=== PATIENT | male | born 1980 | race Caucasian/White ===

== ENCOUNTER 2017-05-25 17:29 | Emergency (ER) | payer OTHER ==
[~2017-05-25] VITALS: Ht 175.3 cm; Wt 105.2 kg
[~2017-05-25 17:29] MED LIST: MOBIC15 M1 PO; PEPCID20 M1 PO; VICODIN 5-3001 EACH PO; ZOFRAN ODT4 M1 PO
[2017-05-25 17:33] VITALS: BP 151/89
--- NOTE | 2017-05-25 19:03 | ED EAR COMPLAINT ---
History of Present Illness General Chief Complaint: Ear Complaints Stated Complaint: LEFT EAR PROBLEMS Vital Signs & Intake/Output Vital Signs & Intake/Output Vital Signs Date Time Temp Pulse Resp B/P B/P Pulse O2 O2 Flow FiO2 Mean Ox Delivery Rate 05/25 1733 97.9 94 18 151/89 98 Room Air Allergies Coded Allergies: No Known Allergies (08/16/15) Reconcile Medications Famotidine (Pepcid) 20 MG TABLET 1 TAB PO BID GASTRITIS Fluticasone Propionate (Flonase Allergy Relief) 50 MCG/ACTUATION SPRAY.SUSP 2 SPRAY NS ONCE DAILY PRN CONGESTION Hydrocodone/Acetaminophen (Vicodin 5-300 MG Tablet) 1 EACH TABLET 1-2 TAB PO Q6P PRN PAIN Meloxicam (Mobic) 15 MG TABLET 1 TAB PO DAILY PRN PAIN Ondansetron (Zofran Odt) 4 MG TAB.RAPDIS 1 TAB PO Q6P PRN NAUSEA Triage Note: PT STATES THAT HE HAS A HISTORY OF TINITIS AN L EAR AND THAT RINGING HAS BEEN INCREASED. FEELS LIKE SOMETHING IS IN EAR, HAD EARS IRRIGATED AT A WALK IN OVER THE WEEK END. PT WOULD LIKE TO SEE IF HE HAS AN EAR INFECTION. 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
--- NOTE | 2017-05-25 19:11 | ED EAR COMPLAINT ---
History of Present Illness General Chief Complaint: Ear Complaints Stated Complaint: LEFT EAR PROBLEMS Source: patient Exam Limitations: no limitations Vital Signs & Intake/Output Vital Signs & Intake/Output Vital Signs Date Time Temp Pulse Resp B/P B/P Pulse O2 O2 Flow FiO2 Mean Ox Delivery Rate 05/25 1733 97.9 94 18 151/89 98 Room Air Allergies Coded Allergies: No Known Allergies (08/16/15) Reconcile Medications Famotidine (Pepcid) 20 MG TABLET 1 TAB PO BID GASTRITIS Fluticasone Propionate (Flonase Allergy Relief) 50 MCG/ACTUATION SPRAY.SUSP 2 SPRAY NS ONCE DAILY PRN CONGESTION Hydrocodone/Acetaminophen (Vicodin 5-300 MG Tablet) 1 EACH TABLET 1-2 TAB PO Q6P PRN PAIN Meloxicam (Mobic) 15 MG TABLET 1 TAB PO DAILY PRN PAIN Ondansetron (Zofran Odt) 4 MG TAB.RAPDIS 1 TAB PO Q6P PRN NAUSEA Triage Note: PT STATES THAT HE HAS A HISTORY OF TINITIS AN L EAR AND THAT RINGING HAS BEEN INCREASED. FEELS LIKE SOMETHING IS IN EAR, HAD EARS IRRIGATED AT A WALK IN OVER THE WEEK END. PT WOULD LIKE TO SEE IF HE HAS AN EAR INFECTION. HAS APPOINTMENT 06/07 WITH ENT Triage Nurses Notes Reviewed? yes Onset: Gradual Duration: week(s):, constant, continues in ED Timing: recent history Injury Environment: home Severity: moderate, severe Severity Numbers: 8 No Modifying Factors: none HPI: 36-year-old male past medical history of hypertension, hyperlipidemia and tinnitus presents for evaluation of worsening tinnitus in his left ear. Patient states that he has had tinnitus in his left ear for years since she was a kid. He's never had it checked or evaluated before. He states that it's always been mild. He states that over the past several weeks as tinnitus is gotten worse. He has an appointment with ear nose and throat doctor on the but feels like it is making it difficult for him to sleep and he wants to make sure there is no infection. He reports associated increased pressure in the left ear and he feels a fluid in the left ear. No fever. He does report some nasal congestion and rhinorrhea. No ear discharge no decreased hearing no dizziness chest pain or shortness of breath. No headaches. Past History Travel History Traveled to [place] past 21 day No Medical History Any Pertinent Medical History? 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 No Review of Systems Review of Systems Constitutional: Reports: no symptoms. EENTM: Reports: ear pain, hearing changes, nasal congestion. Respiratory: Reports: no symptoms. Cardiovascular: Reports: no symptoms. GI: Reports: no symptoms. Genitourinary: Reports: no symptoms. Musculoskeletal: Reports: no symptoms. Skin: Reports: no symptoms. Neurological/Psychological: Reports: no symptoms. Hematologic/Endocrine: Reports: no symptoms. Immunologic/Allergic: Reports: no symptoms. All Other Systems: Reviewed and Negative Physical Exam Physical Exam General Appearance: well developed/nourished, no apparent distress, alert, awake Head: atraumatic, normal appearance Eyes: Bilateral: normal appearance, PERRL, EOMI. Ears: Left: other (clear fluids effusion ). Bilateral: canal normal, Tympanic normal. Nose: discharge (clear) Mouth/Throat: normal mouth inspection, pharynx normal Neck: normal inspection, supple, full range of motion, no mastoid tenderness no pain with palpation of the tragus no pain with pinna pull Cardiovascular/Respiratory: normal breath sounds, normal peripheral pulses, regular rate/rhythm, no respiratory distress Gastrointestinal: soft nontender Back: normal inspection, normal range of motion, no vertebral tenderness Neurologic/Psych: no motor/sensory deficits, awake, alert, oriented x 3, normal gait, normal mood/affect, cerebellar testing intact Skin: intact, normal color, warm/dry Progress Differential Diagnoses I considered the following diagnoses in my evaluation of the patient: [Mnire's disease, vertigo, medication side effects vestibular mass] , Intracranial mass Plan of Care: Patient seen and evaluated. He's been having tinnitus for years since he was younger. He recently increased in intensity over the past several weeks. He denies any new medications or other triggering event. Some associated rhinorrhea congestion and feelings of fluid in his ear. There is some fluid behind the left eardrum. No other associated symptoms. Has an appointment with ear nose and throat on June 07. He'll be given a prescription for Flonase use until then. Advised him to rest and plenty of fluids and monitor symptoms. Return with fever ear discharge worsening tinnitus, dizziness ear pain or any other concerns. Patient is nontoxic-appearing and agrees the plan. Initial ED EKG: none Departure Departure Disposition: HOME OR SELF CARE Condition: Stable Clinical Impression Primary Impression: Tinnitus of left ear Referrals: Joanie TAMAYO,Amarjit Moore (PCP/Family) Additional Instructions: Use fluticasone spray as directed. Follow up with her ear nose and throat doctor on June 07 as scheduled. YOU should also follow up with YOUr primary care doctor. Monitor symptoms return with any concerns. Departure Forms: Customer Survey General Discharge Information Prescriptions: Current Visit Scripts Fluticasone Propionate (Flonase Allergy Relief) 2 SPRAY NS ONCE DAILY PRN CONGESTION #1 BOT
[2017-05-25] MEDS ORDERED: FLONASE ALLERG9.9 ML NS (19:13)
== END 2017-05-25 19:18 ==
LOC: ERH 17:29
DX: H93.12 Tinnitus, left ear (principal)

== ENCOUNTER 2017-08-07 19:46 | Emergency (ER) | payer OTHER ==
[~2017-08-07] VITALS: Ht 175.3 cm; Wt 104.3 kg
[~2017-08-07 19:46] MED LIST changes: +FLONASE ALLERG9.9 ML NS
[2017-08-07 21:02] LABS: ABSOLUTE BASOPHIL COUNT 0 /CUMM (0.0-0.2); ABSOLUTE EOSINOPHIL COUNT 0 /CUMM (0.0-0.7); ABSOLUTE GRANULOCYTE CT 6.8 /CUMM (1.4-6.5); ABSOLUTE LYMPH COUNT 0.6 /CUMM (1.2-3.4); ABSOLUTE MONOCYTE COUNT 0.6 /CUMM (0.10-0.60); BASOPHIL % 0 % (0.0-2.0); EOSINOPHIL % 0.2 % (0-5); GRANULOCYTE % 85.5 % (42.2-75.2); HEMATOCRIT 48.2 % (42-52); MEAN CORPUSCULAR HGB 29.2 PG (27.0-31.0); MEAN CORPUSCULAR VOLUME 85.9 FL (80.0-94.0); MEAN PLATELET VOLUME 8.9 FL (7.4-10.4); PLATELET COUNT 166 /CUMM (130-400); RBC DISTRIBUTION WIDTH 13.1 % (11.5-14.5); RED BLOOD CELL CT 5.61 /CUMM (4.70-6.10)
--- NOTE | 2017-08-07 22:07 | ED GI/GU/ABDOMINAL COMPLAINT ---
History of Present Illness General Chief Complaint: Nausea, Vomiting, Diarrhea Stated Complaint: SEVERE STOMACH PAIN [id number] +N +D Source: patient, old records Exam Limitations: no limitations Vital Signs & Intake/Output Vital Signs & Intake/Output Vital Signs Date Time Temp Pulse Resp B/P B/P Pulse O2 O2 Flow FiO2 Mean Ox Delivery Rate 08/08 0330 98.4 88 14 136/62 97 Room Air 08/07 2339 98.7 95 18 138/60 97 Room Air 08/07 2236 99.5 91 16 143/72 100 Room Air 08/07 2150 100 Room Air ED Intake and Output 08/08 0000 08/07 1200 Intake Total Output Total Balance Patient 230 lb Weight Allergies Coded Allergies: No Known Allergies (08/16/15) Reconcile Medications Famotidine (Pepcid) 20 MG TABLET 1 TAB PO BID GASTRITIS Fluticasone Propionate (Flonase Allergy Relief) 50 MCG/ACTUATION SPRAY.SUSP 2 SPRAY NS ONCE DAILY PRN CONGESTION Hydrocodone/Acetaminophen (Vicodin 5-300 MG Tablet) 1 EACH TABLET 1-2 TAB PO Q6P PRN PAIN Hyoscyamine Sulfate (Levsin-Sl) 0.125 MG TAB.SUBL 1-2 TAB SL Q4P PRN abdominal pain Loperamide HCl (Imodium A-D) 2 MG TABLET 0 PO SEE ADMIN CRITERIA PRN diarrhea 1 tab after each loose stool up to 7 per day Meloxicam (Mobic) 15 MG TABLET 1 TAB PO DAILY PRN PAIN Metoclopramide HCl (Reglan) 10 MG TABLET 1 TAB PO 4 TIMES/DAY nausea 30 minutes before meals and bedtime Ondansetron (Zofran Odt) 4 MG TAB.RAPDIS 1 TAB PO Q6P PRN NAUSEA Triage Note: PT TO TRIAGE C/O UPPER ABD PAIN SINCE THIS MORNING, PROGRESSIVELY GETTING WORSE. +N/D. PT TOOK IMMODIUM AT 6PM WITHOUT RELIEF. STATES PAIN 11/02. Triage Nurses Notes Reviewed? yes Onset: Morning Duration: hour(s):, constant, continues in ED Timing: recent history Quality/Severity: aching, fullness, severe Location: epigastric Radiation: no radiation Activities at Onset: rest Prior Abdominal Problems: similar symptoms Past Sexual History: Unobtainable at this time Modifying Factors: Worsens With: eating, palpation. Associated Symptoms: abdominal pain, diarrhea, loss of appetite, nausea/vomiting HPI: 12 hours prior to admission patient complains of epigastric fullness gas-like moderate to severe associated with nausea and anorexia frequent loose watery stools. He denies fever chills chest pain cough shortness of breath vomiting headache dysuria rash bleeding. Past History Travel History Traveled to [place] past 21 day No Medical History Any Pertinent Medical History? 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 No Review of Systems Review of Systems Constitutional: Reports: no symptoms. EENTM: Reports: no symptoms. Respiratory: Reports: no symptoms. Cardiovascular: Reports: no symptoms. GI: Reports: see HPI, abdominal pain, bloating, diarrhea, nausea. Genitourinary: Reports: no symptoms. Musculoskeletal: Reports: no symptoms. Skin: Reports: no symptoms. Neurological/Psychological: Reports: no symptoms. Hematologic/Endocrine: Reports: no symptoms. Immunologic/Allergic: Reports: no symptoms. All Other Systems: Reviewed and Negative Physical Exam Physical Exam General Appearance: well developed/nourished, alert, awake, anxious, mild distress, obese Head: atraumatic, normal appearance Eyes: Bilateral: normal appearance, PERRL, EOMI, normal inspection. Ears, Nose, Throat, Mouth: hearing grossly normal, moist mucous membrane Neck: normal inspection, supple, full range of motion, normal alignment Respiratory: normal breath sounds, chest non-tender, no respiratory distress, quiet respiration, lungs clear Cardiovascular: regular rate/rhythm, normal peripheral pulses, norml femoral pulses equa Peripheral Pulses: 4+ carotid (R), 4+ carotid (L) Gastrointestinal: soft, abnormal bowel sounds, distention, tenderness ( epigastric mild) Male Genitals: normal genitalia Back: normal inspection, normal range of motion, no vertebral tenderness Extremities: normal range of motion, no ligament instability Neurologic/Psych: no motor/sensory deficits, awake, alert, oriented x 3, normal gait, normal 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 No Sepsis Present: No Sepsis Focused Exam Completed? No Progress Differential Diagnosis: biliary colic, gastritis, pancreatitis, PUD/GERD Plan of Care: Laboratory Tests 08/07/172055: Anion Gap 15, Estimated GFR > 60, BUN/Creatinine Ratio 20.0, Glucose 100 H, Calcium 9.5, Total Bilirubin 1.4 H, AST 20, ALT 36, Alkaline Phosphatase 56, Total Protein 8.4 H, Albumin 5.2 H, Globulin 3.2, Albumin/Globulin Ratio 1.6, Amylase 45, Lipase 34, CBC w Diff NO MAN DIFF REQ, RBC 5.61, MCV 85.9, MCH 29.2, MCHC 34.0, RDW 13.1, MPV 8.9, Gran % 85.5 H, Lymphocytes % 6.9 L, Monocytes % 7.4, Eosinophils % 0.2, Basophils % 0, Absolute Granulocytes 6.8 H, Absolute Lymphocytes 0.6 L, Absolute Monocytes 0.6, Absolute Eosinophils 0, Absolute Basophils 0 Initial ED EKG: none Departure Departure Time of Disposition: 548 Disposition: HOME OR SELF CARE Condition: Stable Clinical Impression Primary Impression: Gastritis Secondary Impressions: Diarrhea Referrals: Joanie TAMAYO,Amarjit Moore (PCP/Family) Departure Forms: Customer Survey General Discharge Information Prescriptions: Current Visit Scripts Metoclopramide HCl (Reglan) 1 TAB PO 4 TIMES/DAY #30 TAB 30 minutes before meals and bedtime Loperamide HCl (Imodium A-D) 0 PO SEE ADMIN CRITERIA PRN diarrhea #24 TAB 1 tab after each loose stool up to 7 per day Hyoscyamine Sulfate (Levsin-Sl) 1-2 TAB SL Q4P PRN abdominal pain #30 TAB Hyoscyamine Sulfate (Levsin-Sl) 1-2 TAB SL Q4P PRN abdominal pain #30 TAB
[2017-08-08 03:30] VITALS: BP 136/62
[2017-08-08] MEDS ORDERED: IMODIUM A-D2 M1 PO (05:51)
[2017-08-08] MEDS ORDERED: LEVSIN-SL0.125 MG SL (05:51)
[2017-08-08] MEDS ORDERED: REGLAN10 M1 PO (05:51)
== END 2017-08-08 05:55 ==
LOC: ERH 19:46
PROVIDERS: Physician Assistant Medical
DX: K29.70 Gastritis, unspecified, without bleeding (principal)
CPT/HCPCS: 96374; 96375; 96376; J2550; J2765